=== PATIENT | female | born 1935 | race Caucasian/White ===

== ENCOUNTER 2020-04-08 07:58 | Outpatient (CLI) | payer MEDICARE, OTHER ==
[2020-04-08 20:46] LABS: Hemoglobin 13.4 g/dL (12.0-15.6); Mean Platelet Volume 10.5 fl (7.4-10.4)
[2020-04-08 20:50] LABS: #Basophils 0.1 10x3/uL (0.0-0.2); #Eosinphils 0.1 10x3/uL (0.0-0.5); #Monocytes 0.7 10x3/uL (0.0-1.1); #Neutrophils 4.4 10x3/uL (1.5-8.4); %Basophils 0.7 % (0.0-2.0); %Eosinophils 0.9 % (0.0-6.0); %Lymphocytes 34.7 % (18.0-47.0); %Neutrophils 54.5 % (40.0-75.0); Mean Corpuscular HGB CONC 31.5 G/DL (32.0-36.0); Mean Corpuscular Hemoglobin 27.4 PG (27.0-33.0); Mean Corpuscular Volume 87.1 fl (80.0-100.0); Platelet Count 398 10x3/uL (130-400); RBC Distribution Width 14.8 % (11.5-14.5); Red Blood Cell (RBC) Count 4.89 10x6/uL (3.90-5.20); White Blood Cell (WBC) Count 8.2 10x3/uL (4.5-11.0)
[2020-04-08 21:07] LABS: #Lymphocytes 2.8 10x3/uL (0.7-4.9)
[2020-04-08 21:33] LABS: Anion Gap 17 mmol/L (10-20); BUN (Urea Nitrogen) 25 mg/dL (9.8-20.1); Calc. Creatinine Clearance 0 mL/min (70-130); Calcium 9.8 mg/dL (7.8-10.44); Carbon Dioxide 26 mmol/L (23-31); Chloride 100 mmol/L (98-107); Estimated GFR-MDRD 36; Glucose 99 mg/dL (83-110); Potassium 5.1 mmol/L (3.5-5.1); Sodium 138 mmol/L (136-145)
[2020-04-09 12:16] LABS: SARS-CoV-2 MS2 Positive; SARS-CoV-2 N Gene Negative; SARS-CoV-2 S Gene Negative; SARS-CoV-2 by NAA Not Detected (NotDetected); SARS-CoV-2 orf1ab Negative
== END 2020-04-08 07:59 | disposition home or self-care (01) ==
LOC: LABBT 07:58
PROVIDERS: ATTEND Urology
DX: Z01.818 Encounter for other preprocedural examination (principal); Z11.59 Encounter for screening for other viral diseases; N39.3 Stress incontinence (female) (male)
CPT/HCPCS: 80048; 85025; 93005; U0003; 87635; 93010